=== PATIENT | female | born 1950 | race Caucasian/White ===

== ENCOUNTER 2016-10-04 07:34 | Day surgery (SDC) | payer MEDICARE, BC ==
[2016-10-04] MEDS ORDERED: Lactated Ringers 1,000 ML IV SCH (07:45)
[2016-10-04] MEDS ORDERED: Propofol 200 MG/20 ML SDV IV ONE (09:00)
--- NOTE | 2016-10-04 09:50 | PCM.OPNOTE ---
- General Post-Op/Procedure Note Date of Surgery/Procedure: 10/04/16 Operative Procedure(s): c scope with bx Findings: rectal polyp descending colon polyp Pre Op Diagnosis: screening Post-Op Diagnosis: rectal polyp. descending colon polyp Anesthesia Technique: MAC Primary Surgeon: Anshu Jernigan Anesthesia Provider: Roger Colunga Pathology: rectal polyp descending colon polyp Complications: None Condition: Good Free Text/Narrative:: see dictation
[2016-10-04 10:31] VITALS: BP 128/72
--- NOTE | 2016-10-04 18:45 | OR ---
DATE OF OPERATION: 10/04/2016 SURGEON: Anshu Jernigan MD PROCEDURE PERFORMED: Colonoscopy with cold forceps, hot loop snare biopsy. PREOPERATIVE DIAGNOSIS: Need for screening colonoscopy. POSTOPERATIVE DIAGNOSIS: Polyp of the descending colon and rectum. INDICATIONS FOR PROCEDURE: This is a 66-year-old white female, who is referred for screening colonoscopy. She was offered and accepted same. DESCRIPTION OF OPERATION: After an excellent IV sedation was administered, digital rectal exam was performed. No marked abnormality was noted. The flexible colonoscope was inserted and advanced without difficulty to the cecum. The prep was excellent. The following findings were noted. Ascending colon, unremarkable. Transverse colon, unremarkable. Descending colon, small polypoid lesion, biopsied with cold biopsy forceps and sent for permanent. Sigmoid unremarkable. Rectum, polypoid lesion, biopsied with hot loop snare and sent for permanent. The colon was deflated, scope was removed. The patient tolerated the procedure well, and was taken to recovery room in good condition. /[id number] /MICHAEL
== END 2016-10-04 10:39 | disposition home or self-care (01) ==
LOC: FB.SDS 07:34
PROVIDERS: ATTEND Surgery
DX: Z12.11 Encounter for screening for malignant neoplasm of colon (principal); D12.8 Benign neoplasm of rectum; K63.5 Polyp of colon; I10 Essential (primary) hypertension; E11.9 Type 2 diabetes mellitus without complications; E78.5 Hyperlipidemia, unspecified; Z79.899 Other long term (current) drug therapy; Z90.49 Acquired absence of other specified parts of digestive tract; Z98.51 Tubal ligation status; Z98.890 Other specified postprocedural states
CPT/HCPCS: 00810; 45380; 45385; 82962; 88305; J2704; J7120

== ENCOUNTER 2021-10-31 06:15 | Day surgery (SDC) | payer BC, MEDICARE, OTHER ==
[~2021-10-31 06:15] MED LIST: Sodium Chloride 0.9% 10 ML Syringe FLUSH PRN
[2021-10-31] MEDS ORDERED: Propofol 200 MG/20 ML SDV IV ONE (06:16)
[2021-10-31] MEDS: Lactated Ringers 1,000 ML IV SCH (06:48)
[2021-10-31 08:43] VITALS: BP 135/63; PULSE 66
== END 2021-10-31 08:55 | disposition home or self-care (01) ==
LOC: FB.SDS 06:15
PROVIDERS: ATTEND Surgery
DX: Z12.11 Encounter for screening for malignant neoplasm of colon (principal); K63.5 Polyp of colon; K62.1 Rectal polyp; E11.9 Type 2 diabetes mellitus without complications; I10 Essential (primary) hypertension; H54.7 Unspecified visual loss; E78.00 Pure hypercholesterolemia, unspecified; Z90.49 Acquired absence of other specified parts of digestive tract; Z98.890 Other specified postprocedural states; Z79.84 Long term (current) use of oral hypoglycemic drugs; Z79.899 Other long term (current) drug therapy; Z86.010 Personal history of colon polyps; Z80.0 Family history of malignant neoplasm of digestive organs
CPT/HCPCS: 00812-QZ; 82947; 88305; J2704; J7120